=== PATIENT | female | born 1945 | race Caucasian/White ===

== ENCOUNTER → 2019-08-17 | Outpatient (CLI) | payer MEDICARE, SELFPAY ==
--- NOTE | 2019-08-17 08:22 | COLBX_PTH ---
PATIENT: KOSTA ALEJANDRO LOC: [facility]#:[id number] AGE/SX: 74/F ROOM: RE08/17/[address]: Dr. Josh Kemp MD : 1945 BED: DIS: 08/17/2019 SPEC #: [id number] RECD: 08/17/19 15:01 STATUS: BRIANDA KANG #: [id number] NENA: 08/17/19 08:[address]: Josh Kemp DEPT: SURGICAL PATHOLOGY RECD BY: Juarez Torres ENTERED: 08/21/19 09:29 SP TYPE: COLON BX OT DR: JB Tissues: A - Ileum, NOS B - COLON BIOPSY Procedures: Surgery Specimen Level IV HEADER OPERATION: Colonoscopy with biopsy PRE-OP DIAGNOSIS: Diarrhea TISSUE SUBMITTED: A - Biopsy terminal ileum, rule out Crohn's, B - Biopsy right and left colon, rule out microscopic colitis MICROSCOPIC DIAGNOSIS A. Terminal ileum, biopsy: No pathologic change. No evidence of Crohn's ileitis. B. Right and left colon, biopsy: No significant pathologic change. No evidence of colitis. AM:sandro 08/22/19 MICROSCOPIC DESCRIPTION Slides are reviewed. GROSS DESCRIPTION A - Received in fixative is one container labeled with the patient's name and designated biopsy terminal ileum. The specimen consists of multiple irregular fragments of light gallegos soft tissue that in aggregate measure 0.6 x 0.3 x 0.1 cm. The specimen is totally submitted in one cassette. B - Received in fixative is one container labeled with the patient's name and designated biopsy right and left colon. The specimen consists of multiple irregular fragments of light agllegos soft tissue that in aggregate measure 2 x 0.4 x 0.1 cm. The specimen is totally submitted in one cassette. / SJ:sandro 08/21/19 TC:5 CPT: 85048 x2
== END | disposition home or self-care (01) ==
PROVIDERS: Referring Provider Internal Medicine Gastroenterology; Visit Provider Internal Medicine Gastroenterology
DX: R19.7 Diarrhea, unspecified (principal)
CPT/HCPCS: 88305

== ENCOUNTER → 2019-10-18 11:17 | Outpatient (CLI) | payer MEDICARE, SELFPAY ==
[2019-10-18 13:01] LABS: CRP 8.27 mg/L (0.0-3.0)
[2019-10-19 16:08] LABS: Endomysial Antibody IgA Negative (Negative)
[2019-10-19 16:49] LABS: Immunoglobulin A 360 mg/dL (64-422); t-Transglutaminase IgA <2 U/mL (0-3)
== END ==
PROVIDERS: PCP Internal Medicine; Referring Provider Internal Medicine Gastroenterology; Visit Provider Internal Medicine Gastroenterology
DX: R19.7 Diarrhea, unspecified (principal)
CPT/HCPCS: 36415; 82784; 83516; 86140; 86255

== ENCOUNTER → 2020-05-03 09:28 | Outpatient (CLI) | payer MEDICARE, SELFPAY ==
--- NOTE | 2020-05-03 09:34 | RAD_ITS ---
STUDY: X-RAY - ESOPHAGUS (BARIUM SWALLOW) WITH FLUOROSCOPY REASON FOR EXAM: Female, 74 years old. DYSPHAGIA -- W/12 MM TABLET TECHNIQUE: 15 view(s) of the esophagus were obtained following swallowing of barium. FLUOROSCOPY TIME (if supplied): (0:50) minutes/seconds COMPARISON: None. FINDINGS: There is no demonstrated esophageal foreign body. There is hypertrophy of the cricopharyngeus muscle. Normal gastroesophageal junction, without a demonstrated hiatal hernia. The patient ingested a 12 mm tablet of barium without any difficulty. There is atherosclerotic calcification of the aortic arch with tortuosity of the descending aorta. Normal visualized pulmonary parenchyma. There are diffuse degenerative changes of the visualized thoracic spine. RAD/Esophagus Dual Contrast IMPRESSION: Hypertrophy of the cricopharyngeus muscle. Electronically Signed: Luís Devine MD at 14:57 EDT , Service support ,
== END ==
PROVIDERS: PCP Internal Medicine; Referring Provider Internal Medicine Gastroenterology; Visit Provider Internal Medicine Gastroenterology
DX: R13.10 Dysphagia, unspecified (principal)
CPT/HCPCS: 74221

== ENCOUNTER → 2022-06-24 | Outpatient (CLI) | payer MEDICARE, SELFPAY | END | disposition home or self-care (01) | LOC: LABSPEC 14:24 | PROVIDERS: PCP Internal Medicine; Visit Provider Student in an Organized Health Care Education/Training Program | DX: N39.0 Urinary tract infection, site not specified (principal) | CPT/HCPCS: 87077; 87086; 87088; 87186 ==